=== PATIENT | female | born 1995 | race Caucasian/White ===

== ENCOUNTER 2016-07-31 20:35 | Emergency (ER) | payer BC ==
[~2016-07-31] VITALS: Ht 167.6 cm; Wt 79.4 kg
[~2016-07-31 20:35] MED LIST: ACET-273; HYDR-707 PO; SIME125C
[2016-07-31] MEDS ORDERED: PARO10OR3 PO (20:57)
[2016-07-31 21:03] LABS: BILIRUBIN,URINE NEGATIVE (NEGATIVE); KETONES,URINE NEGATIVE (NEGATIVE); LEUKOCYTE ESTERASE ,URINE NEGATIVE (NEGATIVE); NITRITE,URINE NEGATIVE (NEGATIVE); PH,URINE 8 (5-9); PROTEIN,URINE NEGATIVE (NEGATIVE); UROBILINOGEN,URINE NORMAL (NORMAL)
--- NOTE | 2016-07-31 21:08 | ED General ---
General Chief Complaint: General Problems/Pain Stated Complaint: NAUSEA, FATIGUE Nursing Triage Note: pt states of nausea, fatigue, stomach, and TORRES for approx. 2 weeks. Nursing Sepsis Screen: No Definite Risk Source of Information: Patient Exam Limitations: No Limitations History of Present Illness Time Seen by Provider: 20:40 Initial Comments This 21-year-old young lady presents to the emergency room with 2 weeks of symptoms including nausea, vomiting, dizziness, headache, and fatigue. Initially she was vomiting 2-3 times per night. She took multiple home tests that were negative. Symptoms have been waxing and waning. They improved and are now worse again. She reports maximum temperature at home of 100.6. She reports no abdominal pain but does have abdominal tenderness with palpation in the epigastric area and the suprapubic region. She denies any constipation or diarrhea. She denies vaginal symptoms or dysuria. Her last menstrual period was July 25 and is already over. Her only home medication has been ibuprofen and her anxiety medication. Last bowel movement was yesterday and was normal. Allergies and Home Medications Allergies Coded Allergies: No Known Allergies (Unverified Allergy, Mild, 05/20/09) Home Medications Paroxetine HCl 10 Mg/5 Ml Oral.susp, 10 MG PO, (Reported) Constitutional: see HPI EENTM: no symptoms reported Respiratory: no symptoms reported Cardiovascular: no symptoms reported Gastrointestinal: see HPI Genitourinary: no symptoms reported : No Musculoskeletal: no symptoms reported Skin: no symptoms reported Psychiatric/Neurological: See HPI Hematologic/Lymphatic: No Symptoms Reported Past Mfusbxd-Lkoxvg-Qxqyxc Hx Patient Social History Alcohol Use: Denies Use Recreational Drug Use: No Smoking Status: Never a Smoker 2nd Hand Smoke Exposure: No Recent Foreign Travel: No Contact w/Someone Who Travel: No Recent Infectious Disease Expo: No Recent Hopitalizations: No Seasonal Allergies Seasonal Allergies: Yes Surgeries HX Surgeries: Yes (wisdom teeth) Surgeries: Orthopedic (right knee) Respiratory Hx Respiratory Disorders: No Cardiovascular Hx Cardiac Disorders: No Neurological Hx Neurological Disorders: No Reproductive System : No Genitourinary Hx Genitourinary Disorders: No Gastrointestinal Hx Gastrointestinal Disorders: No Musculoskeletal Hx Musculoskeletal Disorders: No Endocrine Hx Endocrine Disorders: No HEENT HX ENT Disorders: No Cancer Hx Cancer: No Psychosocial Hx Psychiatric Problems: Yes Behavioral Health Disorders: Anxiety Physical Exam Vital Signs Vital Sign - Last 12Hours 07/31/16 20:51 Temp 97.0 Pulse 85 Resp 20 B/P (MAP) 146/91 Pulse Ox 99 O2 Delivery Room Air Capillary Refill : Less Than 3 Seconds General Appearance: No Apparent Distress, WD/WN HEENT: PERRL/EOMI, TMs Normal, Normal ENT Inspection, Pharynx Normal Neck: Normal Inspection, Non Tender, Supple, No Lymphadenopathy (L), No Lymphadenopathy (R) Respiratory: Lungs Clear, Normal Breath Sounds, No Accessory Muscle Use, No Respiratory Distress Cardiovascular: Regular Rate, Rhythm, No Edema, No Murmur Gastrointestinal: Normal Bowel Sounds, Soft, No Distended, Tenderness ( epigastric and suprapubic, mild) Back: Normal Inspection, No CVA Tenderness Extremity: Normal Inspection, No Pedal Edema Neurologic/Psychiatric: Alert, Oriented x3, No Motor/Sensory Deficits, Normal Mood/Affect, 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 Norm as Tested Skin: Normal Color, Warm/Dry Progress/Results/Core Measures Results/Orders Lab Results Laboratory Tests Test 07/31/16 20:40 07/31/16 21:52 Range/Units Urine Color YELLOW Urine Clarity CLEAR Urine pH 8 5-9 Urine Specific [place]man 1.015 L 1.016-1.022 Urine Protein NEGATIVE NEGATIVE Urine Glucose (UA) NEGATIVE NEGATIVE Urine Ketones NEGATIVE NEGATIVE Urine Nitrite NEGATIVE NEGATIVE Urine Bilirubin NEGATIVE NEGATIVE Urine Urobilinogen NORMAL NORMAL MG/DL Urine Leukocyte Esterase NEGATIVE NEGATIVE Urine RBC (Auto) NEGATIVE NEGATIVE Urine RBC NONE /HPF Urine WBC RARE /HPF Urine Squamous Epithelial Cells 0-2 /HPF Urine Crystals NONE /LPF Urine Bacteria TRACE /HPF Urine Casts NONE /LPF Urine Mucus NEGATIVE /LPF Urine Culture Indicated NO Urine Test NEGATIVE NEGATIVE White Blood Count 8.5 4.3-11.0 10^3/uL Red Blood Count 4.49 4.35-5.85 10^6/uL Hemoglobin 13.0 11.5-16.0 G/DL Hematocrit 39 35-52 % Mean Corpuscular Volume 86 80-99 FL Mean Corpuscular Hemoglobin 29 25-34 PG Mean Corpuscular Hemoglobin Concent 34 32-36 G/DL Red Cell Distribution Width 13.2 10.0-14.5 % Platelet Count 300 130-400 10^3/uL Mean Platelet Volume 9.9 7.4-10.4 FL Neutrophils (%) (Auto) 60 42-75 % Lymphocytes (%) (Auto) 29 12-44 % Monocytes (%) (Auto) 9 0-12 % Eosinophils (%) (Auto) 2 0-10 % Basophils (%) (Auto) 1 0-10 % Neutrophils # (Auto) 5.0 1.8-7.8 X 10^3 Lymphocytes # (Auto) 2.4 1.0-4.0 X 10^3 Monocytes # (Auto) 0.8 0.0-1.0 X 10^3 Eosinophils # (Auto) 0.1 0.0-0.3 10^3/uL Basophils # (Auto) 0.1 0.0-0.1 10^3/uL Sodium Level 140 135-145 MMOL/L Potassium Level 3.9 3.6-5.0 MMOL/L Chloride Level 106 98-107 MMOL/L Carbon Dioxide Level 24 21-32 MMOL/L Anion Gap 10 5-14 MMOL/L Blood Urea Nitrogen 9 7-18 MG/DL Creatinine 0.77 0.60-1.30 MG/DL Estimat Glomerular Filtration Rate > 60 BUN/Creatinine Ratio 12 Glucose Level 90 70-105 MG/DL Calcium Level 9.9 8.5-10.1 MG/DL Magnesium Level 2.1 1.8-2.4 MG/DL Total Bilirubin 0.4 0.1-1.0 MG/DL Aspartate Amino Transf (AST/SGOT) 25 5-34 U/L Alanine Aminotransferase (ALT/SGPT) 36 0-55 U/L Alkaline Phosphatase 30 L 40-136 U/L Total Protein 7.3 6.4-8.2 G/DL Albumin 4.2 3.2-4.5 G/DL Lipase 9 8-78 U/L Serum Test, Qualitative NEGATIVE NEGATIVE My Orders Orders - RHEA SALMON MD Hcg,Qualitative Urine (07/31/16 20:58) Ua Culture If Indicated (07/31/16 20:58) Cbc With Automated Diff (07/31/16 21:19) Comprehensive Metabolic Panel (07/31/16 21:19) Hcg,Qualitative Serum (07/31/16 21:19) Lipase (07/31/16 21:19) Magnesium (07/31/16 21:19) Saline Lock/Iv-Start (07/31/16 21:19) Ondansetron Injection (Zofran Injectio (07/31/16 21:30) Famotidine Injection (Pepcid Injection) (08/01/16 09:00) Famotidine Injection (Pepcid Injection) (07/31/16 21:45) Lidocaine 2% Viscous 15 Ml (Xylocaine Vi (07/31/16 22:15) Antacid Suspension (Mylanta Suspension (07/31/16 22:15) Rx-Ondansetron Po (Rx-Zofran Po) (07/31/16 23:01) Ketorolac Injection (Toradol Injection) (07/31/16 23:15) Medications Given in ED Current Medications Medications Dose Ordered Sig/Huber Route Start Time Stop Time Status Last Admin Dose Admin Al Hydrox/Mg Hydrox/Simethicone 30 ml ONCE ONCE PO 07/31/16 22:15 07/31/16 22:16 DC 07/31/16 22:37 30 ML Famotidine 20 mg ONCE ONCE IVP 07/31/16 21:45 07/31/16 21:46 DC 07/31/16 22:05 20 MG Ketorolac Tromethamine 30 mg ONCE ONCE IVP 07/31/16 23:15 07/31/16 23:16 DC 07/31/16 23:06 30 MG Lidocaine HCl 15 ml ONCE ONCE PO 07/31/16 22:15 07/31/16 22:16 DC 07/31/16 22:38 15 ML Ondansetron HCl 4 mg ONCE ONCE IVP 07/31/16 21:30 07/31/16 21:31 DC 07/31/16 22:05 4 MG Vital Signs/I&O Vital Sign - Last 12Hours 07/31/16 07/31/16 20:51 23:16 Temp 97.0 97.0 Pulse 85 85 Resp 20 20 B/P (MAP) 146/91 Pulse Ox 99 99 O2 Delivery Room Air Blood Pressure Mean: 109 Progress Note #1: Time: 21:26 Progress Note UA and urine tests were unremarkable. Patient was reexamined and found to still have epigastric, right upper quadrant and suprapubic tenderness. Workup will be pursued with labs. Patient will be treated with Zofran and Pepcid. Progress Note #2: Progress Note Workup was essentially unremarkable. Patient was treated with Zofran and Pepcid. Nausea improved but tenderness did not. She was then treated with a GI cocktail. Again, tenderness did not improve. Further evaluation with ultrasound was advised. She was given an outpatient order form to have an ultrasound performed tomorrow when she would be able to have a longer period of time NPO. Toradol was given to help her manage pain overnight. A take-home packet of Zofran was dispensed. Departure Impression Impression: Primary Impression: Right upper quadrant pain Additional Impression: Nausea and vomiting Qualified Codes: R11.2 - Nausea with vomiting, unspecified Disposition: HOME, SELF-CARE Condition: Stable Departure-Patient Inst. Decision time for Depature: 23:00 Referrals: NO,LOCAL PHYSICIAN (PCP/Family) Primary Care Physician Patient Instructions: Acute Abdomen (Belly Pain) Add. Discharge Instructions: Observe a clear liquid diet tonight including water, juice, sports drinks, Jell- O, chicken broth, etc. Do not eat or drink after 2 o'clock a.m. in preparation for possible ultrasound tomorrow. Call [phone] after 7:30 to schedule your gallbladder ultrasound tomorrow. Tell the schedule analyst that Dr. Taylor requested you have this performed on Thursday. Also call Dr. Joya's office for follow-up. Return to the ER if symptoms worsen or you develop more fevers over 100 degrees. If your ultrasound is scheduled at a later date, please observe a very low-fat diet until the ultrasound is performed. Dissolve Zofran (ondansetron) under the tongue every 4 hours as needed for nausea and vomiting. When scheduling the ultrasound, please assess the schedule analyst if a prior authorization from your primary care provider is needed. All discharge instructions reviewed with patient and/or family. Voiced understanding. Copy Copies To 1: HANNAH JOYA MD, JOSHUA T MD July 31, 2016 21:08
[2016-07-31 21:16] LABS: SQUAMOUS EPITHELIAL CELL,UR 0-2 /HPF; WBC,URINE RARE /HPF
[2016-07-31] MEDS ORDERED: ONDANSETRON 4 MG/2 ML (SDV) Z0FRAN IVP ONE (21:30)
[2016-07-31] MEDS ORDERED: FAMOTIDINE 20MG/2ML IV (PEPCID) IVP ONE (21:45)
[2016-07-31 22:01] LABS: BASOPHILS # (AUTO) 0.1 10^3/uL (0.0-0.1); BASOPHILS % (AUTO) 1 % (0-10); EOSINOPHILS # (AUTO) 0.1 10^3/uL (0.0-0.3); EOSINOPHILS % (AUTO) 2 % (0-10); LYMPHOCYTES # (AUTO) 2.4 X 10^3 (1.0-4.0); LYMPHOCYTES % (AUTO) 29 % (12-44); MEAN CORPUSCULAR HEMOGLOBIN 29 PG (25-34); MEAN CORPUSCULAR HGB CONC 34 G/DL (32-36); MEAN CORPUSCULAR VOLUME 86 FL (80-99); MEAN PLATELET VOLUME 9.9 FL (7.4-10.4); MONOCYTES # (AUTO) 0.8 X 10^3 (0.0-1.0); MONOCYTES % (AUTO) 9 % (0-12); NEUTROPHILS % (AUTO) 60 % (42-75); PLATELET COUNT 300 10^3/uL (130-400); RED BLOOD COUNT 4.49 10^6/uL (4.35-5.85); RED CELL DISTRIBUTION WIDTH 13.2 % (10.0-14.5); WHITE BLOOD COUNT 8.5 10^3/uL (4.3-11.0)
[2016-07-31] MEDS ORDERED: LIDOCAINE 2% VISCOUS 15 ML UDC PO ONE (22:15)
[2016-07-31] MEDS ORDERED: ANTACID SUSP 30 ML UDC (MYLANTA) PO ONE (22:15)
[2016-07-31 22:26] LABS: ALANINE AMINOTRANSFERASE 36 U/L (0-55); ALBUMIN 4.2 G/DL (3.2-4.5); ANION GAP 10 MMOL/L (5-14); ASPARTATE AMINO TRANSFERASE 25 U/L (5-34); BILIRUBIN,TOTAL 0.4 MG/DL (0.1-1.0); BLOOD UREA NITROGEN 9 MG/DL (7-18); BUN/CREATININE RATIO 12; CALCIUM 9.9 MG/DL (8.5-10.1); CARBON DIOXIDE 24 MMOL/L (21-32); CHLORIDE 106 MMOL/L (98-107); CREATININE SERUM 0.77 MG/DL (0.60-1.30); GFR ESTIMATED > 60; GLUCOSE 90 MG/DL (70-105); LIPASE 9 U/L (8-78); MAGNESIUM 2.1 MG/DL (1.8-2.4); POTASSIUM 3.9 MMOL/L (3.6-5.0); SODIUM 140 MMOL/L (135-145); TOTAL PROTEIN 7.3 G/DL (6.4-8.2)
[2016-07-31] MEDS ORDERED: RX-ONDANSETRON 4 MG ODT (ZOFRAN) PPK #4 SL STA (23:01)
[2016-07-31] MEDS ORDERED: KETOROLAC 30 MG/ML VIAL IVP ONE (23:15)
[2016-07-31 23:16] VITALS: BP 146/91
[2016-08-01] MEDS ORDERED: FAMOTIDINE 20MG/2ML IV (PEPCID) IVP SCH (09:00)
== END 2016-07-31 23:16 | disposition home or self-care (01) ==
LOC: EDUNIT# 20:35 → ER 20:38
DX: R10.11 Right upper quadrant pain (principal); R11.2 Nausea with vomiting, unspecified; R42 Dizziness and giddiness; R51 Headache
CPT/HCPCS: 36415; 80053; 81000; 83690; 83735; 84703; 85025; 96374; 96375

== ENCOUNTER → 2016-08-01 | Outpatient (CLI) | payer BC ==
[~2016-08-01] MED LIST changes: +PARO10OR3 PO
--- NOTE | 2016-08-06 09:03 | Diagnostic Imaging Report ---
PROCEDURE: US Gallbladder. TECHNIQUE: Multiple real-time grayscale images were obtained over the right upper quadrant in various projections. INDICATION: Right upper quadrant pain. Nausea and vomiting. FINDINGS: The visualized portions of the pancreas appear unremarkable. The liver demonstrates no focal lesion. There is hepatopetal flow in the portal vein. The CBD is 0.3 cm in caliber. The gallbladder demonstrates no stones or wall thickening. The sonographic Sol sinus is reportedly negative. The right kidney is 10.1 cm in length with no hydronephrosis. There is a simple cyst measuring 1.9 cm in the upper pole of the right kidney. No solid mass. No fluid collection in the upper right abdomen. IMPRESSION: No gallstones or evidence of cholecystitis. Dictated by: Dictated on workstation # [id number]
== END ==
LOC: RAD 08:55
PROVIDERS: ATTEND Family Medicine
DX: R10.11 Right upper quadrant pain (principal); R11.2 Nausea with vomiting, unspecified
CPT/HCPCS: 76705

== ENCOUNTER 2016-09-03 14:42 | Outpatient (CLI) | payer BC ==
[~2016-09-03] VITALS: Ht 167.6 cm; Wt 79.4 kg
[2016-09-03] MEDS ORDERED: PARO40TA3 PO (16:00)
[2016-09-04] MEDS ORDERED: DOCU-143 PO (10:01)
[2016-09-04] MEDS ORDERED: HYDR-3812 PO (10:01)
== END 2016-09-03 16:06 ==
LOC: PREOP 14:42
PROVIDERS: ATTEND Surgery
DX: Z01.818 Encounter for other preprocedural examination (principal); K82.8 Other specified diseases of gallbladder

== ENCOUNTER 2016-09-04 07:56 | Day surgery (SDC) | payer BC ==
[~2016-09-04] VITALS: Ht 167.6 cm; Wt 81.6 kg
[~2016-09-04 07:56] MED LIST changes: +PARO40TA3 PO
[2016-09-04] MEDS ORDERED: ceFAZolin 2 GM/NS 50 ML IV ONE (08:15)
[2016-09-04] MEDS: LACTATED RINGERS 1,000 ML IV PRN ×2 (08:30→10:56)
[2016-09-04 09:14] VITALS: BP 133/85
[2016-09-04] MEDS ORDERED: ONDANSETRON 4 MG/2 ML (SDV) Z0FRAN ONE ×2 (09:46→09:48)
[2016-09-04] MEDS ORDERED: SCOPOLAMINE 1.5 MG (TRANSDERM-SCOP) PATCH ONE (09:46)
[2016-09-04] MEDS ORDERED: FAMOTIDINE 20MG/2ML IV (PEPCID) ONE (09:46)
[2016-09-04] MEDS ORDERED: proPOfol 200 MG/20 ML (DIPRIVAN) VIAL IV ONE (09:48)
[2016-09-04] MEDS ORDERED: ROCURONIUM 50 MG/5 ML (ZEMURON) VIAL IV ONE (09:48)
[2016-09-04] MEDS ORDERED: SEVOFLURANE (ULTANE) 15 ML INHAL SOLN ONE ×6 (09:48→11:42)
[2016-09-04] MEDS ORDERED: LIDOCAINE PF 2% 5 ML (XYLOCAINE) VIAL ONE (09:48)
[2016-09-04] MEDS ORDERED: LACTATED RINGERS 1,000 ML IV ONE ×2 (09:48→11:23)
[2016-09-04] MEDS ORDERED: DEXAMETHASONE PF 10 MG/ML (DECADRON) VIAL ONE (09:48)
[2016-09-04] MEDS ORDERED: fentaNYL INJECTION 250 MCG/5 ML AMP ONE (09:49)
[2016-09-04] MEDS ORDERED: MIDAZOLAM 2 MG/2 ML (VERSED) VIAL ONE (09:49)
--- NOTE | 2016-09-04 09:59 | Progress Note-Pre Operative ---
Pre-Operative Progress Note H&P Reviewed The H&P was reviewed, patient examined and no changes noted. Date Seen by Provider: Sep 04, 2016 Time Seen by Provider: 09:59 Date H&P Reviewed: Sep 04, 2016 Time H&P Reviewed: 09:59 Pre-Operative Diagnosis: ruq abdominal pain biliary dyskinesia ISRAEL VORA DO Sep 04, 2016 09:59
[2016-09-04] MEDS ORDERED: SCOPOLAMINE 1.5 MG (TRANSDERM-SCOP) PATCH TOP ONE (10:00)
[2016-09-04] MEDS ORDERED: FAMOTIDINE 20MG/2ML IV (PEPCID) IV ONE (10:00)
[2016-09-04] MEDS ORDERED: ONDANSETRON 4 MG/2 ML (SDV) Z0FRAN IV ONE (10:00)
[2016-09-04] MEDS ORDERED: HYDR-3812 PO (10:01)
[2016-09-04] MEDS ORDERED: DOCU-143 PO (10:01)
--- NOTE | 2016-09-04 10:03 | Discharge Inst-Simple/Standard ---
Discharge Inst-Standard Discharge Medications New, Converted or Re-Newed RX: RX on Chart Patient Instructions/Follow Up Plan of Care/Instructions/FU: Follow up with Dr. Delvalle in 2 weeks Take medication as directed. Activity as Tolerated: No Discharge Diet: No Restrictions Other Inst to Patient Follow up Appt: Make appointment for 2 weeks. Instructions: No lifting greater than 10 pounds. No strenuous activity. May shower in 24 hours, no tub bath or soaking. Use incentive spirometer at home as directed. No Smoking Skin/Wound Care: May remove bandages. You need to leave the white strips over incision on they will fall off on their own. Symptoms to Report: Appetite Changes, Extremity Discoloration, Numbness/Tingling, Swelling Increased , Bleeding Excessive, Eyesight Changes, Pain Increased, Urine Color Change, Constipation(Persistent), Fever over 101 degree F, Pain/Pressure in chest, Urinating Difficulty, Cough Up/Vomit Blood, Heart Beat Irreg/Pounding, Pain/ Pressure in jaw, Vaginal Bleeding Increase, Cramps in feet or legs, Lightheadedness, Pain/Pressure in shoulder, Diarrhea(Persistent), Memory Changes Suddenly, Questions/Concerns, Weight gain consecutive days, Dizziness/ Fainting, Nausea/Vomiting, Shortness of Breath, Weight gain over 2 pounds. If eyes or skin turn yellow notify physician. If questions or concerns contact your physician Or seek help at emergency department. ZEV BECKMAN APRN Sep 04, 2016 10:03
[2016-09-04] MEDS ORDERED: LIDOCAINE 1% INJ 20 ML (XYLOCAINE) VIAL ONE (10:08)
[2016-09-04] MEDS ORDERED: BUPIVACAINE 0.5% 30 ML (SENSORCAINE) VIAL ONE (10:08)
[2016-09-04] MEDS ORDERED: NEOSTIGMINE (BLOXIVERZ ) 1 MG/1ML 10 ML VIAL ONE (11:24)
[2016-09-04] MEDS ORDERED: GLYCOPYRROLATE 0.2 MG/ML (ROBINUL) 2 ML VIAL ONE (11:24)
[2016-09-04] MEDS ORDERED: morphine INJ 10 MG/ML 1ML (SYR OR VIAL) ONE (11:32)
--- NOTE | 2016-09-04 11:41 | Progress Note-Post Operative ---
Post-Operative Progess Note Surgeon (s)/Student Accounts Coordinator (s) Surgeon ISRAEL VORA DO Student Accounts Coordinator: Dr. Braga Pre-Operative Diagnosis ruq abdominal pain biliary dyskinesia Post-Operative Diagnosis same Procedure & Operative Findings Date of Procedure 09/04/16 Procedure Performed/Findings Lap cholecystectomy c ioc Anesthesia Type general Estimated Blood Loss Estimated blood loss (mL): minimal Specimens/Packing Specimens Removed gallbladder ISRAEL VORA DO Sep 04, 2016 11:41 am
[2016-09-04] MEDS ORDERED: MEPERIDINE (DEMEROL) INJ 50 MG/ML IVP PRN (12:00)
[2016-09-04] MEDS ORDERED: ONDANSETRON 4 MG/2 ML (SDV) Z0FRAN IVP PRN (12:00)
[2016-09-04] MEDS: morphine INJ 10 MG/ML 1ML (SYR OR VIAL) IVP PRN ×3 (12:08→12:19)
[2016-09-04 12:40] VITALS: BP 110/68
[2016-09-04] MEDS ORDERED: HYDROcodone/APAP 5 MG/325 MG (LORTAB) TAB PO ONE (13:00)
[2016-09-04 13:10] VITALS: BP 112/68
[2016-09-04] MEDS ORDERED: HYDROcodone/APAP 5 MG/325 MG (LORTAB) TAB ONE (13:14)
[2016-09-04 13:40] VITALS: BP 116/68
[2016-09-04 14:15] VITALS: BP_SYST 111; BP_SYST 116; BP_DIAS 68; BP_DIAS 73
--- NOTE | 2016-09-04 15:53 | OPERATIVE REPORT ---
DATE OF SERVICE: 09/04/2016 PREOPERATIVE DIAGNOSIS: Right upper quadrant abdominal pain, biliary dyskinesia. POSTOPERATIVE DIAGNOSIS: Right upper quadrant abdominal pain, biliary dyskinesia. PROCEDURE: Laparoscopic cholecystectomy with intraoperative cholangiogram. SURGEON: Israel Delvalle DO MACHINE SHOP LEAD MAN: Dr. Braga assisted in retraction, dissection and closure. ANESTHESIA: General. ESTIMATED BLOOD LOSS: Minimal. COMPLICATIONS: None. INDICATIONS: The patient is a 21-year-old female who has been having abdominal pain for approximately 2 months. She had normal ultrasound and she had a HIDA scan with ejection fraction of 38%. Her pain is located in the right upper quadrant and then radiates around to her back. She states that food is what brings on her pain. She was explained risks and benefits of laparoscopic cholecystectomy with intraoperative cholangiogram and all other procedures. She understands and wishes to proceed. Consent was signed on chart. DESCRIPTION OF PROCEDURE: The patient was taken to the operating suite. She was prepped and draped in sterile fashion. Surgical pause was performed. A 12 mm incision was made just above the umbilicus. Cautery was used to dissect down the fascia, which the fascia was then scored grasped with Kochers and elevated. The abdomen was then entered. A balloon trocar was then placed within the abdomen and pneumoperitoneum was achieved. Under direct visualization with the laparoscope a 5 mm trocar was placed in the subxiphoid region and two 5 mm trocars were placed in the right upper quadrant. The gallbladder was grasped and elevated. There was a small adhesion of omentum up to the gallbladder. This was then bluntly taken down. The cystic artery and cystic duct were then dissected out. Clips were placed on the proximal and distal portion of the cystic artery and a clip was placed on the distal portion of the cystic duct. The duct was then partially transected and an arrow catheter was then inserted into the duct and cholangiogram was performed. There were no filling defects. Contrast made its way into the duodenum without difficulty. The catheter was then removed. Clips were placed on the proximal portion of the cystic duct and then the cystic artery and cystic duct and then completely transected. Hook cautery was used to dissect the gallbladder off the gallbladder fossa achieving hemostasis. Once removed it was placed in an Endobag and removed through the 12 mm trocar site. Copious amounts of irrigation were used to irrigate the abdomen and suction it out. The abdomen was then desufflated. The 12 mm fascial defect was then closed using an 0 Vicryl in a [id number] fashion. The wounds were then irrigated. The skin was then closed using 4-0 Vicryl in a subcuticular fashion. The skin then had Dermabond placed over the incisions. The patient tolerated the procedure well without any complications. She was taken to recovery room in stable condition. Job ID: [id number] DocumentID: [id number] Dictated Date: 09/04/2016 13:51:09 Family Development Specialist Date: 09/04/2016 15:52:30 Dictated By: ISRAEL DELVALLE DO
--- NOTE | 2016-09-04 17:26 | Diagnostic Imaging Report ---
Intraoperative measuring. Indication abdominal pain. Laparoscopic cholecystectomy by Dr. Braga 11 seconds of fluoroscopy time is utilized. Findings: There is opacification of the CBD which has normal caliber and the prompt passage into the duodenum. No filling defects to suggest a stone. Impression: No evidence of CBD stone or obstruction Dictated by: Dictated on workstation # [id number]
--- OUTSIDE RECORDS SUMMARY | 2016-09-09 19:59 | XMS REPORT | Continuity of Care Document ---
Author Author [facility] Organization [facility] Address Unknown Phone Unavailable Allergies Medications Problems Procedures Results Encounters ACCT No. Visit Date/Time Discharge Status Pt. Type Provider Facility Loc./Unit Complaint [id number] 10/30/2014 21:53:07 10/30/2014 23: 59:59 CLS Outpatient Rachael Jones [id number] 10/30/2014 21:27:40 10/30/2014 23: 59:59 CLS Outpatient Prabhjot Hou [id number] 11/25/2013 10:05:38 11/25/2013 23: 59:59 CLS Outpatient Rachael Jones [id number] 05/31/2015 09:44:13 ACT Outpatient Sanju Cardenas [id number] 05/10/2015 18:11:19 ACT Outpatient Jonathan Dickerson
--- OUTSIDE RECORDS SUMMARY | 2016-09-09 20:01 | XMS REPORT | Continuity of Care Document ---
Author Author [facility] Organization [facility] Address Unknown Phone Unavailable Allergies Medications Problems Procedures Results Encounters ACCT No. Visit Date/Time Discharge Status Pt. Type Provider Facility Loc./Unit Complaint [id number] 10/30/2014 21:53:07 10/30/2014 23: 59:59 CLS Outpatient Rachael Jones [id number] 10/30/2014 21:27:40 10/30/2014 23: 59:59 CLS Outpatient Prabhjot Hou [id number] 11/25/2013 10:05:38 11/25/2013 23: 59:59 CLS Outpatient Rachael Jones [id number] 05/31/2015 09:44:13 ACT Outpatient Sanju Cardenas [id number] 05/10/2015 18:11:19 ACT Outpatient Jonathan Dickerson
== END 2016-09-04 14:15 | disposition home or self-care (01) ==
LOC: SDC 07:56
PROVIDERS: ATTEND Surgery
DX: K81.1 Chronic cholecystitis (principal)
CPT/HCPCS: 84703; 87081; 88304; 94664

== ENCOUNTER 2020-10-15 13:51 | Emergency (ER) | payer BC ==
[~2020-10-15] VITALS: Ht 167.6 cm; Wt 91.6 kg
[~2020-10-15 13:51] MED LIST changes: +ACHD5005 PO; +DOCU-143 PO
--- NOTE | 2020-10-15 14:51 | ED Lower Extremity ---
General Chief Complaint: Lower Extremity Stated Complaint: L LEG SWOLLEN, LEG PAIN Nursing Triage Note: PT ARRIVED BY PRIVATE VEHICLE WITH CHIEF COMPLAINT OF LEFT CALF PAIN. PT WAS ALERT, ORIENTED X4 AND AMBULATORY ON ARRIVAL. PT'S VITALS WERE TAKEN ON ARRIVAL. PT STATED ONSET WAS THURSDAY WHICH STARTED GRADUALLY THEN STOPPED AND WENT AWAY. STARTED AGAIN TODAY MORE SUDDEN ONSET. PT STATED SHE TOOK 1,000MG TYLENOL FOR PAIN. PT STATED SHE MIGHT HAVE HAD A PANIC ATTACK IN WAITING ROOM SO HER BP MIGHT BE UP. PT TAKES LABETALOL, AND ASPIRIN DAILY. PT DENIES SMOKING, ALCOHOL, OR DRUG USE. PT DENIES ALLERGIES TO MEDICATIONS. PT IS 28 WEEKS AND HER OBGYN IS DR. FISHER AT [facility]. Source: patient Exam Limitations: no limitations History of Present Illness Date Seen by Provider: Oct 15, 2020 Time Seen by Provider: 14:47 Initial Comments To ER with left calf pain and intermittent swelling for a few days. She is 28 weeks . Onset: just prior to arrival Severity: moderate Pain/Injury Location: left leg Method of Injury: fell Modifying Factors: Worse With Movement Allergies and Home Medications Allergies Coded Allergies: No Known Drug Allergies (Unverified , 09/03/16) Home Medications Docusate Sodium 100 Mg Capsule, 100 MG PO BID Prescribed by: ZEV GARCIAS on 09/04/16 1001 Hydrocodone Bit/Acetaminophen 1 Each Tablet, 1 EA PO Q4-6HR PRN for PAIN- MODERATE TO SEVERE Prescribed by: ZEV GARCIAS on 09/04/16 1001 Paroxetine HCl 40 Mg Tablet, 40 MG PO DAILY, (Reported) Patient Home Medication List Home Medication List Reviewed: Yes Review of Systems Constitutional: see HPI EENTM: see HPI Respiratory: no symptoms reported Cardiovascular: no symptoms reported Genitourinary: no symptoms reported Musculoskeletal: no symptoms reported Skin: no symptoms reported Psychiatric/Neurological: No Symptoms Reported Past Forvpnb-Gtkhpi-Dbemay Hx Patient Social History Tobacco Use?: No Smoking Status: Never a Smoker Substance use?: No Alcohol Use?: No Pt feels they are or have been: No Seasonal Allergies Seasonal Allergies: Yes Past Medical History Surgeries: Yes (dental) Orthopedic Respiratory: No Cardiac: No Neurological: No Reproductive Disorders: No Female Reproductive Disorders: Menstrual Problems Sexually Transmitted Disease: No HIV/AIDS: No Genitourinary: No Gastrointestinal: No Gastroesophageal Reflux, Gall Bladder Disease Musculoskeletal: No Chronic Back Pain Endocrine: No HEENT: No Loss of Vision: Bilateral Hearing Impairment: Denies Cancer: No Psychosocial: Yes Anxiety Integumentary: No Blood Disorders: No Adverse Reaction/Blood Tranf: No Physical Exam Vital Signs Vital Signs - First Documented 10/15/20 14:00 Temp 36.9 Pulse 110 Resp 22 B/P (MAP) 141/81 (101) Pulse Ox 99 O2 Delivery Room Air Capillary Refill : Less Than 3 Seconds Height, Weight, BMI Height: 5'6.00" Weight: 180lbs. 0.0oz. 81.197161ea; 32.00 BMI Method:Stated General Appearance: WD/WN, no apparent distress Neck: non-tender, full range of motion Cardiovascular: regular rate, rhythm, no murmur Respiratory: no respiratory distress, no accessory muscle use Hips: bilateral hip non-tender, bilateral hip normal inspection, bilateral hip normal range of motion Legs: bilateral leg non-tender, bilateral leg normal inspection, bilateral leg normal range of motion Knees: bilateral knee non-tender, bilateral knee normal inspection, bilateral knee normal range of motion Ankles: bilateral ankle non-tender, bilateral ankle normal inspection, bilateral ankle normal range of motion Feet: bilateral foot non-tender, bilateral foot normal inspection, bilateral foot normal range of motion Neurologic/Psychiatric: alert, normal mood/affect, oriented x 3 Skin: normal color, warm/dry Trace pedal edema left lower extremity no erythema Progress/Results/Core Measures Results/Orders My Orders Orders - BAILEE KAN APRN Venous Lower Ext Lt (10/15/20 14:35) Vital Signs/I&O 10/15/20 14:00 Temp 36.9 Pulse 110 Resp 22 B/P (MAP) 141/81 (101) Pulse Ox 99 O2 Delivery Room Air Blood Pressure Mean: 101 Departure Impression Primary Impression: Pedal edema Disposition: 01 HOME, SELF-CARE Condition: Stable Departure-Patient Inst. Decision time for Depature: 15:17 Referrals: HANNAH ELLSWORTH MD (PCP/Family) Primary Care Physician Patient Instructions: Dependent Edema (DC) Add. Discharge Instructions: All discharge instructions reviewed with patient and/or family. Voiced understanding. BAILEE KAN APRN Oct 15, 2020 14:50
[2020-10-15 16:12] VITALS: BP 123/77
--- NOTE | 2020-10-15 16:58 | Diagnostic Imaging Report ---
PROCEDURE: US left lower extremity venous. TECHNIQUE: Multiple Real-time grayscale images were obtained over the left lower extremity in various projections. Additional duplex Doppler and color Doppler images were also obtained. INDICATION: Left leg pain. FINDINGS: The unilateral left lower extremity femoropopliteal deep venous system shows normal color flow, normal waveforms, and normal response to augmentation and Valsalva maneuvers. No deep or superficial thrombus is identified. No mass or fluid collection is detected. IMPRESSION: Normal negative unilateral left lower extremity venous Doppler and ultrasound exam. Dictated by: Dictated on workstation # [id number]
== END 2020-10-15 16:12 | disposition home or self-care (01) ==
LOC: EDUNIT# 13:51 → ER 13:55
DX: O12.03 Gestational edema, third trimester (principal); O99.343 Other mental disorders complicating pregnancy, third trimester; F41.0 Panic disorder [episodic paroxysmal anxiety]; O99.891 Other specified diseases and conditions complicating pregnancy; G89.29 Other chronic pain; M54.9 Dorsalgia, unspecified; Z79.899 Other long term (current) drug therapy; Z3A.28 28 weeks gestation of pregnancy